=== PATIENT | female | born 1985 | race Caucasian/White ===

== ENCOUNTER → 2024-06-03 | Outpatient (CLI) | payer BC, OTHER ==
[~2024-06-03] MED LIST: COLACE 100100 MG/CAP PO; MECLIZINE HCL25 MG PO; PHENERGAN 25 TA25 MG PO; PHENERGAN25 MG RC; ZOFRAN4 MG PO
== END ==
LOC: MC.RAD 13:17
DX: Z12.31 Encounter for screening mammogram for malignant neoplasm of breast (principal)